=== PATIENT | female | born 1970 | race Caucasian/White ===

== ENCOUNTER 2021-04-14 11:25 | Day surgery (SDC) | payer OTHER ==
[~2021-04-14] VITALS: Ht 160 cm; Wt 103.5 kg
[~2021-04-14 11:25] MED LIST: ALPR1 PO; BUPR150ER PO; Budeprion Sr150 MG PO; CALCAVITD PO; Excedrin Extra1 EACH PO; HYDACE5325 PO; KRILL OIL 3001 EACH PO; MULVITMIND PO; NAPR500 PO; PRED5 PO; SUMA20NI; SUMA5NI; VENL37.5 PO; VENL75ER PO
[2021-04-14] MEDS ORDERED: MIRTAZAPINE7.5 M1 PO (12:06)
[2021-04-14] MEDS ORDERED: BUSP5 PO (12:07)
--- NOTE | 2021-04-14 13:41 | NUR ---
04/14/21 1341 Naye Coffey A LEFT GEL HIP BUMP
== END 2021-04-14 14:56 | disposition home or self-care (01) ==
LOC: ORSCSDS 11:25
PROVIDERS: Orthopaedic Surgery
PROC: 0SBD4ZZ Excision of Left Knee Joint, Percutaneous Endoscopic Approach (ICD-10-PCS; principal; 2021-04-14 13:00)
DX: S83.242A Other tear of medial meniscus, current injury, left knee, initial encounter (principal); M17.12 Unilateral primary osteoarthritis, left knee; M94.262 Chondromalacia, left knee; Z87.891 Personal history of nicotine dependence; K21.9 Gastro-esophageal reflux disease without esophagitis; E66.01 Morbid (severe) obesity due to excess calories; Z68.41 Body mass index [BMI] 40.0-44.9, adult; Z79.899 Other long term (current) drug therapy; Z79.82 Long term (current) use of aspirin
CPT/HCPCS: J0690; J1100; J1885; J2250; J2405; J2704; J3010; J7120

== ENCOUNTER → 2021-10-05 | Outpatient (CLI) | payer OTHER ==
[~2021-10-05] MED LIST changes: +BUSP5 PO; +MIRTAZAPINE7.5 M1 PO
[2021-10-10 11:10] LABS: HPV 16 Negative (Negative); HPV 18 Negative (Negative); HPV OTHER HR TYPES Negative (Negative)
== END | disposition home or self-care (01) ==
LOC: LAB SHORT 14:07 → LAB 14:07
PROVIDERS: Advanced Practice Midwife
DX: Z01.419 Encounter for gynecological examination (general) (routine) without abnormal findings (principal)
CPT/HCPCS: 87624; G0123

== ENCOUNTER 2025-02-15 12:19 | Emergency (ER) | payer OTHER ==
[~2025-02-15] VITALS: Ht 162.6 cm; Wt 102.1 kg
[~2025-02-15 12:19] MED LIST changes: +OXAYDO5 M1 PO
[2025-02-15 12:40] VITALS: BP 162/100
[2025-02-15 12:50] LABS: BASOPHILS ABSOLUTE AUTO 0.04 K/mm3 (0.00-0.23); BASOPHILS PERCENT AUTO 1 % (0-2); EOSINOPHILS ABSOLUTE AUTO 0.17 K/mm3 (0.00-0.68); EOSINOPHILS PERCENT AUTO 3 % (0-6); Hematocrit 41.3 % (33.0-51.0); Hemoglobin 13.8 g/dL (11.5-16.0); IMMATURE GRAN ABSOLUTE AUTO 0.01 K/mm3 (0.00-0.10); IMMATURE GRAN PERCENT AUTO 0 % (0-1); LYMPHOCYTES ABSOLUTE AUTO 0.98 K/mm3 (0.84-5.20); LYMPHOCYTES PERCENT AUTO 17 % (21-46); MONOCYTES ABSOLUTE AUTO 0.36 K/mm3 (0.16-1.47); MONOCYTES PERCENT AUTO 6 % (4-13); Mean Corpuscular HGB Conc 33.4 g/dL (31.5-36.5); Mean Corpuscular Volume 94 fL (80-100); NEUTROPHILS ABSOLUTE AUTO 4.15 K/mm3 (1.96-9.15); NEUTROPHILS PERCENT AUTO 73 % (41-73); NRBC ABSOLUTE 0.00 K/mm3 (0.00-0.02); NRBC Auto 0.0 /100 WBC (0.0-0.2); Platelet Count 307 K/mm3 (150-400); RDW Coefficient Variation 12.2 % (11.7-14.2); RDW Standard Deviation 42.1 fL (35.1-46.3)
[2025-02-15 13:13] LABS: Alanine Aminotransfer (ALT/SGP 22.0 U/L (12-78); Albumin, Blood 3.5 g/dL (3.4-5.0); Albumin/Globulin Ratio 1.0 (0.8-1.8); Anion Gap 7.0 mmol/L (3-11); Aspartate Aminotrans (AST/SGOT 17.0 U/L (12-37); Bilirubin, Total 0.5 mg/dL (0.1-1.0); Blood Urea Nitrogen 11.0 mg/dL (8-24); CO2, Blood 27.0 mmol/L (21-32); Calcium, Blood 9.2 mg/dL (8.5-10.1); Chloride, Blood 108.0 mmol/L (98-108); Creatinine, Blood 0.86 mg/dL (0.40-1.00); Globulin, Blood 3.5 g/dL (2.2-4.0); Glucose, Blood 142.0 mg/dL (70-99); Potassium, Blood 3.8 mmol/L (3.5-5.5); Sodium, Blood 138.0 mmol/L (136-145); Total Protein, Blood 7.0 g/dL (6.4-8.2)
[2025-02-15] MEDS ORDERED: Lidocaine 2% Viscous Soln 15 ML UDC PO ONE (13:25)
== END 2025-02-15 14:32 | disposition home or self-care (01) ==
LOC: ER 12:19
PROVIDERS: Physician Assistant
DX: R07.9 Chest pain, unspecified (principal); Z87.891 Personal history of nicotine dependence; Z91.040 Latex allergy status; Z79.82 Long term (current) use of aspirin; Z79.899 Other long term (current) drug therapy; Z59.89 Other problems related to housing and economic circumstances
CPT/HCPCS: 71046; 80053; 84484; 85025; 93005; 93010; 99285-25; A9270